=== PATIENT | female | born 1980 | race Two or more races ===

== ENCOUNTER 2017-07-21 13:09 | Emergency (ER) | payer MEDICAID ==
[~2017-07-21] VITALS: Ht 149.9 cm; Wt 65.8 kg
[~2017-07-21 13:09] MED LIST: IBUP400T35; PREN-129 OR
[2017-07-21 13:21] VITALS: BP 105/69
== END 2017-07-21 14:52 | disposition home or self-care (01) ==
LOC: ER 13:09
DX: J02.9 Acute pharyngitis, unspecified (principal)

== ENCOUNTER 2018-08-17 11:51 | Emergency (ER) | payer MEDICAID ==
[~2018-08-17] VITALS: Ht 149.9 cm; Wt 63.5 kg
[2018-08-17 12:28] VITALS: BP 109/73
[2018-08-17] MEDS ORDERED: HYDROcodone-ACET 10/325MG TAB ONE (17:10)
== END 2018-08-17 13:37 | disposition home or self-care (01) ==
LOC: ER 11:51
DX: B02.9 Zoster without complications (principal); M54.5 Low back pain; M25.551 Pain in right hip

== ENCOUNTER 2019-08-24 13:55 | Emergency (ER) | payer MEDICAID ==
[~2019-08-24] VITALS: Ht 149.9 cm; Wt 65.3 kg
[2019-08-24 16:21] VITALS: BP 114/75
== END 2019-08-24 16:32 | disposition home or self-care (01) ==
LOC: ER 13:56
DX: H66.93 Otitis media, unspecified, bilateral (principal)

== ENCOUNTER 2019-08-30 21:19 | Emergency (ER) | payer MEDICAID ==
[~2019-08-30] VITALS: Ht 149.9 cm; Wt 65.8 kg
[2019-08-31 01:44] VITALS: BP 105/71
[2019-08-31] MEDS ORDERED: cefTRIAXone SOD 1,000 MG VL IM ONE (02:00)
[2019-08-31] MEDS ORDERED: LIDOCAINE 1% HCL (LOCAL ANESTH.) INJ 20ML MDV ONE (02:00)
== END 2019-08-31 02:23 | disposition home or self-care (01) ==
LOC: ER 21:20
DX: H65.93 Unspecified nonsuppurative otitis media, bilateral (principal); H60.93 Unspecified otitis externa, bilateral; J01.90 Acute sinusitis, unspecified
CPT/HCPCS: 96372; 99283; J0696; J2001

== ENCOUNTER 2020-02-07 15:27 | Emergency (ER) | payer MEDICAID ==
[~2020-02-07] VITALS: Ht 165.1 cm; Wt 81.6 kg
[2020-02-07] MEDS ORDERED: SODIUM CHLORIDE 0.9% 1,000 ML IV ONE ×2 (15:40)
[2020-02-07 16:05] VITALS: BP 115/68
[2020-02-07 16:37] LABS: Basophils # (auto) 0 10 ^3/uL (0-0.2); Basophils % (auto) 0.4 % (0.0-2.0); Eosinophils # (auto) 0.1 10 ^3/uL (0-0.8); Eosinophils % (auto) 1.4 % (0.0-7.0); Hematocrit 39.1 % (36.0-46.0); Hemoglobin 13.1 g/dL (12.2-16.2); Lymphocytes # (auto) 1.5 10 ^3/uL (0.4-5.4); Lymphocytes % (auto) 23.3 % (10.0-50.0); Mean Corpuscular Hemoglobin 30.1 pg (28.0-32.0); Mean Corpuscular Hgb Conc. 33.5 g/dL (32.0-36.0); Mean Corpuscular Volume 89.9 fL (80.0-100.0); Monocytes # (auto) 0.4 10 ^3/uL (0-1.3); Monocytes % (auto) 6.2 % (0.0-12.0); Neutrophils # (auto) 4.4 10 ^3/uL (1.6-8.6); Neutrophils % (auto) 68.7 % (37.0-80.0); Nucleated Red Blood Cells % 0.1 %; Platelet Count (auto) 276 10^3/uL (140-450); Red Blood Cells 4.35 10^6/uL (4.0-5.20); Red Cell Distribution Width 13.3 % (11.8-14.3); White Blood Cell 6.5 10^3/uL (4.4-10.8)
[2020-02-07 16:54] LABS: Albumin 3.3 g/dL (3.4-5.0); Anion Gap 5 (5-15); Blood Urea Nitrogen 17 mg/dL (7-18); Calcium 7.7 mg/dL (8.5-10.1); Carbon Dioxide 22 mmol/L (21-32); Chloride 114 mmol/L (98-107); Potassium 3.2 mmol/L (3.5-5.1); Sodium 141 mmol/L (136-145)
[2020-02-07 16:59] LABS: Alanine Aminotransferase 23 U/L (13-56); Alkaline Phosphatase 90 U/L (45-117); Aspartate Aminotransferase 18 U/L (15-37); BUN/Creatinine Ratio 16.2; Bilirubin, Total 0.4 mg/dL (0.2-1.0); GFR African American 75 mL/min; GFR Non-African American 62 mL/min; Glucose 115 mg/dL (74-106); Total Protein 7.6 g/dL (6.4-8.2)
[2020-02-07] MEDS ORDERED: POTASSIUM EFFERVESENT TAB 25 MEQ PO ONE (17:15)
== END 2020-02-07 17:11 | disposition home or self-care (01) ==
LOC: ER 15:27 → EDBD 15:27 → ER 17:11
DX: T67.5XXA Heat exhaustion, unspecified, initial encounter (principal); E86.0 Dehydration; E87.6 Hypokalemia; E44.1 Mild protein-calorie malnutrition; E83.51 Hypocalcemia; X58.XXXA Exposure to other specified factors, initial encounter; Y93.89 Activity, other specified; Y92.89 Other specified places as the place of occurrence of the external cause; Y99.8 Other external cause status
CPT/HCPCS: 36415; 70450; 71045; 80053; 84484; 85025; 93005; 96360; 99285; J7030

== ENCOUNTER 2020-03-23 23:54 | Emergency (ER) | payer MEDICAID ==
[~2020-03-23] VITALS: Ht 149.9 cm; Wt 65.8 kg
[2020-03-24 00:42] VITALS: BP 141/87
== END 2020-03-24 03:08 | disposition home or self-care (01) ==
LOC: ER 23:56
DX: S23.41XA Sprain of ribs, initial encounter (principal); H11.33 Conjunctival hemorrhage, bilateral; V89.2XXA Person injured in unspecified motor-vehicle accident, traffic, initial encounter; Y93.89 Activity, other specified; Y92.410 Unspecified street and highway as the place of occurrence of the external cause; Y99.8 Other external cause status
CPT/HCPCS: 72128

== ENCOUNTER 2021-11-24 19:46 | Emergency (ER) | payer MEDICAID ==
[~2021-11-24] VITALS: Ht 149.9 cm; Wt 61.2 kg
[2021-11-24 19:47] VITALS: BP 110/63
[2021-11-25] MEDS ORDERED: DexAMETHasone SOD PHOS 10MG/1ML VIAL INJ IM ONE (02:30)
[2021-11-25] MEDS ORDERED: PRED20TA2 PO (06:12)
== END 2021-11-25 04:32 | disposition left against medical advice (07) ==
LOC: ER 19:46
DX: S46.911A Strain of unspecified muscle, fascia and tendon at shoulder and upper arm level, right arm, initial encounter (principal); Z79.1 Long term (current) use of non-steroidal anti-inflammatories (NSAID); Z79.899 Other long term (current) drug therapy; V00.131A Fall from skateboard, initial encounter; Y93.51 Activity, roller skating (inline) and skateboarding; Y92.89 Other specified places as the place of occurrence of the external cause; Y99.8 Other external cause status
CPT/HCPCS: 73080; 96372; 99283; J1100

== ENCOUNTER 2022-04-08 15:28 | Emergency (ER) | payer MEDICAID ==
[~2022-04-08] VITALS: Ht 149.9 cm; Wt 135.0 kg
[~2022-04-08 15:28] MED LIST changes: +PRED20TA2 PO
[2022-04-08 17:23] LABS: Urine Bacteria FEW /hpf (None Seen); Urine Blood TRACE /uL (Negative); Urine Hyaline Cast FEW /lpf (0 - 2); Urine Mucus FEW (None Seen); Urine Specific Gravity 1.016 (1.001-1.035); Urine WBC 352 /hpf (0 - 5)
[2022-04-08 18:30] LABS: Basophils # (auto) 0 10 ^3/uL (0-0.2); Basophils % (auto) 0.3 % (0.0-2.0); Eosinophils # (auto) 0 10 ^3/uL (0-0.8); Eosinophils % (auto) 0.2 % (0.0-7.0); Hematocrit 35.2 % (36.0-46.0); Lymphocytes # (auto) 1.1 10 ^3/uL (0.4-5.4); Lymphocytes % (auto) 13.8 % (10.0-50.0); Mean Corpuscular Hemoglobin 29.6 pg (28.0-32.0); Mean Corpuscular Volume 87.1 fL (80.0-100.0); Monocytes # (auto) 0.4 10 ^3/uL (0-1.3); Monocytes % (auto) 4.7 % (0.0-12.0); Neutrophils # (auto) 6.5 10 ^3/uL (1.6-8.6); Red Blood Cells 4.05 10^6/uL (4.0-5.20); Red Cell Distribution Width 13.3 % (11.8-14.3); White Blood Cell 8.1 10^3/uL (4.4-10.8)
[2022-04-08 18:53] LABS: Albumin 2.9 g/dL (3.4-5.0); BUN/Creatinine Ratio 12.4
[2022-04-08 18:55] LABS: Bilirubin, Total 0.5 mg/dL (0.2-1.0); Total Protein 7.3 g/dL (6.4-8.2)
[2022-04-08] MEDS ORDERED: ACETAMINOPHEN 325 MG TAB PO ONE (19:15)
[2022-04-08] MEDS ORDERED: POTASSIUM EFFERVESENT TAB 25 MEQ PO ONE (19:15)
[2022-04-08] MEDS ORDERED: CEPH-322 PO (19:15)
[2022-04-08 19:48] VITALS: BP 112/63
== END 2022-04-08 19:54 | disposition left against medical advice (07) ==
LOC: ER 15:28
DX: N12 Tubulo-interstitial nephritis, not specified as acute or chronic (principal); E87.6 Hypokalemia; Z32.02 Encounter for pregnancy test, result negative
CPT/HCPCS: 36415; 80053; 81001; 81025; 84484; 85025; 93005

== ENCOUNTER 2024-08-05 19:12 | Emergency (ER) | payer MEDICAID ==
[~2024-08-05] VITALS: Ht 149.9 cm; Wt 73.9 kg
[~2024-08-05 19:12] MED LIST changes: +CEPH250C PO
[2024-08-05 19:36] VITALS: BP 146/97; PULSE 93; RESP 16; TEMP 97.7; O2SAT 98
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
[2024-08-05] MEDS ORDERED: AUG875T PO (19:59)
[2024-08-05] MEDS ORDERED: IBUP-1456 PO (19:59)
[2024-08-05] MEDS: HYDROcodone-ACET 5/325MG TAB PO ONE (20:07)
[2024-08-05] MEDS: cefTRIAXone SOD 1,000 MG VL IM ONE (20:13)
== END 2024-08-05 20:23 | disposition home or self-care (01) ==
LOC: ER 19:12
DX: K03.81 Cracked tooth (principal); Z79.52 Long term (current) use of systemic steroids; Z79.2 Long term (current) use of antibiotics; Z79.899 Other long term (current) drug therapy
CPT/HCPCS: 96372; 99283; J0696

== ENCOUNTER 2024-09-27 15:18 | Emergency (ER) | payer MEDICAID ==
[~2024-09-27] VITALS: Ht 149.9 cm; Wt 72.3 kg
--- NOTE | 2024-09-27 15:52 | ED.PDOC ---
Eye-HPI HPI Comments 44 y/o F, presents to the ED for CC of flu-like symptoms. Patient states, she has been experiencing flu-like symptoms with associated chills, body-aches, and dark colored urine x3days. Patient relays, that she took cranberry pills in hopes of clearing up a possible urinary tract infection. Patient states she has had some bilateral flank pain concerns radiating to her belly. Patient denies cough, sore throat, fever, or N/V/D. No other associated symptoms, modifiers, recent injuries or sick contacts at this time. Time Seen by MD: 15:30 Primary Care Provider: NONE Reviewed Notes: Nurses Notes, Medications, Allergies Allergies: Coded Allergies: NO KNOWN ALLERGIES (Unverified , 02/17/10) Home Meds Active Scripts Cephalexin (KEFLEX CAPSULE) 250 Mg Cp, 250 MG PO QID for 10 Days, #40 TAB Prov:RANDY NEWMAN MD 04/08/22 Prednisone (Prednisone) 20 Mg Tab, 20 MG PO TID for 7 Days, #21 MG Prov:ASA SMALL MD 11/25/21 Reported Medications Vit W/ Ferrous Fumara () Tab, 1 OR DAILY 03/02/13 Ibuprofen (Ibu) 400 Mg Tab 05/13/10 Information Source: Patient Mode of Arrival: Ambulatory Timing: Days Duration: Since onset Prehospital treatment: None Lids: Normal Conjunctiva: Normal Cornea: Normal Pupils: Normal EOM: Normal Fundus: Normal Slit lamp exam: Normal Anterior chamber: Normal Mouth: Normal Nose: Normal Sinuses: Normal Oropharynx: Normal Onset: Spontaneous Throat Exposed to: None Modifying factors: Nothing Associated signs and symptoms: None Past Medical History PAST MEDICAL HISTORY: Denies 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 Family History Family History: Reviewed,noncontributory to illness, No family hx of Cancer, No family hx of DM, No family hx of Heart rachael, No family hx of HTN, No family hx ofKidney rachael, No family hx of Liver rachael, No family hx of Lung rachael, No family hx of Stroke Social History Smoker: Non-Smoker Alcohol: Denies ETOH Use Drugs: Denies Drug Use Lives In: Home Constitutional: reports: chills, others (body aches); denies: diaphoresis, fatigue, fever, malaise, sweats, weakness EENTM: denies: blurred vision, double vision, ear bleeding, ear discharge, ear drainage, ear pain, ear ringing, eye pain, eye redness, hearing loss, mouth pain, mouth swelling, nasal discharge, nose bleeding, nose congestion, nose pain, photophobia, tearing, throat pain, throat swelling, voice changes, others Respiratory: denies: cough, hemoptysis, orthopnea, SOB at rest, shortness of breath, SOB with excertion, stridor, wheezing, others Cardiovascular: denies: chest pain, dizzy spells, diaphoresis, Dyspnea on exertion, edema, irregular heart beat, left arm pain, lightheadedness, palpitations, PND, syncope, others Gastrointestinal: reports: abdominal pain; denies: abdomen distended, blood streaked bowels, constipated, diarrhea, dysphagia, difficulty swallowing, hematemesis, melena, nausea, poor appetite, poor fluid intake, rectal bleeding, rectal pain, vomiting, others Genitourinary: reports: flank pain; denies: abnormal vagina bleeding, burning, dyspareunia, dysuria, frequency, hematuria, incontinence, pain, , vagina discharge, urgency, others Neurological: reports: headache; denies: dizziness, fainting, left sided numbness, left sided weakness, numbness, paresthesia, pre-existing deficit, right sided numbness, right sided weakness, seizure, speech problems, tingling, tremors, weakness, others Musculoskeletal: denies: back pain, gout, joint pain, joint swelling, muscle pain, muscle stiffness, neck pain, others Integumetry: denies: bruises, change in color, change in hair/nails, dryness, laceration, lesions, lumps, rash, wounds, others Allergic/Immunocompromised: denies: Difficulty Healing, Frequent Infections, Hives, Itching, others Hematologic/Lymphatic: denies: anemia, blood clots, easy bleeding, easy bruising, swollen glands, others Endocrine: denies: excessive hunger, excessive sweating, excessive thirst, excessive urination, flushing, intolerance to cold, intolerance to heat, unex plained weight gain, unexplained weight loss, others Psychiatric: denies: anxiety, bipolar disorder, depression, hopeless, panic disorder, schizophrenia, sleepless, suicidal, others All Other Systems: Reviewed and Negative Physical Exam General Appearance: Moderate Distress (Patient appears to be in mild-to- moderate distress due to her chief complaints.), Obese HEENT: Normal ENT Inspection, Pharynx Normal, TMs Normal Neck: Full Range of Motion, Non-Tender, Normal, Normal Inspection Respiratory: Chest Non-Tender, Lungs Clear, No Accessory Muscle Use, No Respiratory Distress, Normal Breath Sounds Cardiovascular: No Edema, No JVD, No Murmur, No Gallop, Normal Peripheral Pulses, Regular Rate/Rhythm Breast Exam: Deferred Gastrointestinal: Other ( Diffuse bilateral flank pain without definitive CVA tenderness radiating bilaterally to abdomen. Difficult to assess due to body habitus. No signs of trauma. No pulsatile masses.) Genitalia: Deferred Pelvic: Deferred Rectal: Deferred Extremities: No calf tenderness, Normal capillary refill, Normal inspection, Normal range of motion, Non-tender, No pedal edema Neurologic: Alert, No Motor Deficits, Normal Affect, Normal Mood, No Sensory Deficits Cerebellar Function: Normal Reflexes: Normal Skin: Dry, Normal Color, Warm Lymphatic: No Adenopathy Was a procedure done? Was a procedure done?: No EENT DIFF Eye: N/A Sore Throat: URI, Other ( Viral illness, UTI) X-Ray, Labs, Meds, VS Vital Signs Date Time Temp Pulse Resp B/P (MAP) Pulse Ox O2 Delivery O2 Flow Rate FiO2 09/27/24 16:48 98.5 116 17 113/70 (84) 99 98.5 09/27/24 16:48 116 17 99 Room Air* 0 21 09/27/24 16:11 101.1 122 20 117/74 (88) 98 101.1 Lab Test 09/27/24 15:58 Range/Units Urine Color Dark-yellow Yellow Urine Clarity Turbid H Clear Urine pH 5.5 5.0-9.0 Urine Specific [place] 1.019 1.001-1.035 Urine Protein 1+ H Negative Urine Ketones Negative Negative Urine Blood 1+ H Negative /uL Urine Nitrite 2+ H Negative Urine Bilirubin 1+ H Negative Urine Urobilinogen 2 H Negative mg/dL Urine Leukocyte Esterase 2+ Negative /uL Urine RBC 5 0 - 4 /hpf Urine Microscopic WBC 41 H 0-5 /HPF Urine Squamous Epithelial Cells Few <5 /hpf Urine Bacteria Few H None Seen /hpf Urine Mucus Few None Seen Urine Glucose Normal Normal mg/dL Urine Test Negative Negative Current Medications Medications (Trade) Dose Ordered Sig/Zack Route Start Time Stop Time Status Last Admin Ondansetron HCl (Zofran Po) 4 mg ONCE ONCE PO 09/27/24 16:00 09/27/24 16:01 DC 09/27/24 16:44 Acetaminophen (Tylenol Tablet Or Capsule) 1,000 mg ONCE ONCE PO 09/27/24 16:30 09/27/24 16:34 DC 09/27/24 16:44 X-Ray, Labs, Meds, VS Comment All studies performed the ED were evaluated by me personally. Serum laboratories were unremarkable, but urinalysis confirmed a large urinary tract infection. Patient was given 1st dose of antibiotics prior to discharge. Advised patient utilize antibiotics as directed until completion. Time of 1ST Reevaluation: 19:16 Reevaluation 1ST: Improved Consultation: PCP Patient Education/Counseling: Diagnosis, Treatment Family Education/Counseling: Diagnosis, Treatment, No Family Present Departure 1 Departure Time of Disposition: 19:17 Impression: Primary Impression: Urinary tract infection Disposition: HOME / SELF CARE / HOMELESS Condition: Stable Additional Instructions: Advised patient utilize antibiotics as directed until completion as well as additional medication as needed. Patient should practice healthy nutrition and good hydration throughout. e-Prescriptions Ondansetron Odt 4MG Tab (ZOFRAN PO) 4 Mg Tb 4 MG PO Q6HP PRN, #10 TAB ODT TAB-DISSOLVE IN MOUTH, THEN SWALLOW Prov: ALYSIA CHI 09/27/24 Acetaminophen (Acetaminophen) 500 Mg Tab 500 MG PO Q4HP PRN, #20 TAB Prov: ALYSIA CHI PAC 09/27/24 Ibuprofen Micronized (Ibuprofen) 800 Mg Tab 800 MG PO Q8HP PRN, #15 TAB Prov: ALYSIA CHI PAC 09/27/24 Sulfamethoxazole W/Trimethopri (Bactrim Ds Tablet) 1 Tab Tb 1 TAB PO BID for 7 Days, #14 TAB Prov: ALYSIA CHI PAC 09/27/24 Discharged With: Self, Friend Critical Care Note Critical Care Time?: No Stability Stability form required: No Heart Score Heart Score: Heart Score Response (Comments) Value History N/A 0 EKG N/A 0 Age N/A 0 Risk Factors N/A 0 Troponin N/A 0 Total 0 I personally scribed for ALYSIA CHI PAC ([email or web address] on 09/27/24 at 15:52. Electronically submitted by Angelika Lemos ([email or web address]). ALYSIA CHI PAC Sep 27, 2024 15:52
[2024-09-27] MEDS ORDERED: ACETAMINOPHEN 325 MG TAB PO ONE (16:00)
[2024-09-27 16:07] LABS: Urine Clarity Turbid (Clear); Urine Color Dark-Yellow (Yellow); Urine Specific Gravity 1.019 (1.001-1.035)
[2024-09-27 16:08] LABS: Urine Bacteria FEW /hpf (None Seen); Urine Blood 1+ /uL (Negative); Urine Mucus FEW (None Seen); Urine Protein, UAD 1+ (Negative); Urine Squamous Epithelial Cell FEW /hpf (<5); Urine Urobilinogen 2 mg/dL (Negative); Urine WBC 41 /HPF (0-5); Urine pH 5.5 (5.0-9.0)
[2024-09-27] MEDS: ACETAMINOPHEN 325 MG TAB PO ONE (16:27)
[2024-09-27] MEDS: ONDANSETRON ODT 4 MG TAB PO ONE (16:44)
[2024-09-27] MEDS: ACETAMINOPHEN 500 MG TAB or CAP PO ONE (16:44)
[2024-09-27 16:48] VITALS: PULSE 116; RESP 17; O2SAT 99
[2024-09-27] MEDS ORDERED: BACDST PO (19:19)
[2024-09-27] MEDS ORDERED: IBUP-1455 PO (19:19)
[2024-09-27] MEDS ORDERED: ACET500T58 PO (19:19)
[2024-09-27] MEDS ORDERED: ZOFR4T PO (19:19)
[2024-09-27] MEDS: SULFAMETHOX W/TRIMETH(800/160MG) DS TAB PO ONE (19:26)
[2024-09-27 19:27] VITALS: BP 105/60; PULSE 100; RESP 19; TEMP 99; O2SAT 98
[2024-09-27 20:13] LABS: COVID19 ANTIGEN SOFIA FIA NEGATIVE (NEGATIVE); Rapid Influenza A Negative (Negative); Rapid Influenza B Negative (Negative)
== END 2024-09-27 20:43 | disposition home or self-care (01) ==
LOC: ER 15:18
DX: N39.0 Urinary tract infection, site not specified (principal); Z79.52 Long term (current) use of systemic steroids; Z79.899 Other long term (current) drug therapy; Z20.822 Contact with and (suspected) exposure to COVID-19
CPT/HCPCS: 36415; 81001; 81025; 87426; 87804; 99284; Q0162

== ENCOUNTER 2024-11-01 16:23 | Emergency (ER) | payer MEDICAID ==
[~2024-11-01] VITALS: Ht 149.9 cm; Wt 71.9 kg
[~2024-11-01 16:23] MED LIST changes: +ACET500T58 PO; +BACDST PO; +IBUP-1455 PO; +ZOFR4T PO
[2024-11-01 18:53] VITALS: BP 120/72; PULSE 92; RESP 16; TEMP 98.3; O2SAT 98
[2024-11-01] MEDS ORDERED: ACET500T58 PO (18:55)
[2024-11-01] MEDS ORDERED: CLIN1CAP70 PO (18:55)
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
[2024-11-01] MEDS: cefTRIAXone SOD 1,000 MG VL IM ONE (19:10)
[2024-11-01] MEDS: TETANUS-DIPTH-ACEL PERTUSSIS 0.5ML SYR Tdap IM ONE (19:11)
== END 2024-11-01 19:14 | disposition home or self-care (01) ==
LOC: ER 16:25
DX: T20.20XA Burn of second degree of head, face, and neck, unspecified site, initial encounter (principal); T21.11XA Burn of first degree of chest wall, initial encounter; Z98.890 Other specified postprocedural states; X08.8XXA Exposure to other specified smoke, fire and flames, initial encounter; Y93.89 Activity, other specified; Y92.89 Other specified places as the place of occurrence of the external cause; Y99.8 Other external cause status
CPT/HCPCS: 90471; 90715; 96372; 99284; J0696